=== PATIENT | male | born 1955 | race Caucasian/White ===

== ENCOUNTER 2017-09-27 13:58 | Outpatient (CLI) | payer BC ==
[2017-09-27 15:06] LABS: Hemoglobin 16.2 g/dL (14.0-18.0); Mean Corpuscular HGB CONC 36.1 g/dL (32.0-36.0); Mean Corpuscular Hemoglobin 33.1 pg (27.0-31.0); Mean Corpuscular Volume 91.9 fL (78.0-98.0); Platelet Count 191 thou/uL (130-400); RBC Distribution Width 11.4 % (11.5-14.5); White Blood Cell (WBC) Count 5.9 thou/uL (4.8-10.8)
[2017-09-27 15:39] LABS: Anion Gap 14 mmol/L (10-20); BUN (Urea Nitrogen) 14 mg/dL (8.4-25.7); Calc. Creatinine Clearance 0 mL/min (70-130); Calcium 10.1 mg/dL (7.8-10.44); Carbon Dioxide 24 mmol/L (23-31); Chloride 104 mmol/L (98-107); Estimated GFR-MDRD 83; Glucose 155 mg/dL (80-115); Potassium 4.1 mmol/L (3.5-5.1); Sodium 138 mmol/L (136-145)
== END 2017-09-27 13:59 | disposition home or self-care (01) ==
LOC: LABBT 13:58
PROVIDERS: ATTEND Neurological Surgery
DX: Z01.818 Encounter for other preprocedural examination (principal); M47.12 Other spondylosis with myelopathy, cervical region
CPT/HCPCS: 80048; 85027; 93005; 93010

== ENCOUNTER 2017-09-27 14:30 | Inpatient (IN) | payer BC ==
[2017-10-03] MEDS ORDERED: CEFAZOLIN/Water 2 GM/20 ML SYRINGE ONE (11:04)
[2017-10-03] MEDS ORDERED: Dexamethasone 20 MG/5 ML VIAL ONE (11:08)
[2017-10-03] MEDS ORDERED: ePHEDrine/0.9% NaCl/PF SYRINGE 50 mg/10 ml ONE (11:08)
[2017-10-03] MEDS ORDERED: PROPOFOL 200 MG/20 ML VIAL ONE (11:08)
[2017-10-03] MEDS ORDERED: Glycopyrrolate 0.2 MG/ML 5 ML SYRINGE ONE (11:08)
[2017-10-03] MEDS ORDERED: Ondansetron HCl/PF 4 MG/2 ML Vial ONE (11:08)
[2017-10-03] MEDS ORDERED: PHENYLEPHRINE-NS 100 MCG/ML 10 ML SYRINGE ONE (11:08)
[2017-10-03] MEDS ORDERED: Lidocaine 1% PF 5 ML VIAL ONE (11:08)
[2017-10-03] MEDS ORDERED: Sodium Chloride 0.9% 10 ML ONE (12:24)
[2017-10-03] MEDS ORDERED: Bacitracin Zinc Ointment 30 gm TUBE ONE ×2 (12:24→12:25)
[2017-10-03] MEDS ORDERED: Fentanyl 100 MCG/2 ML VIAL ONE ×4 (12:39→16:17)
[2017-10-03] MEDS ORDERED: Midazolam HCl 2 mg/2 ml Vial ONE ×2 (12:39→13:08)
[2017-10-03] MEDS ORDERED: Fentanyl 250 MCG/5 ML VIAL ONE (13:08)
[2017-10-03] MEDS ORDERED: HYDROmorphone 2 MG/ML VIAL SLOW IVP PRN (15:41)
[2017-10-03] MEDS ORDERED: Morphine Sulfate 2 MG/ML SYRINGE SLOW IVP PRN (15:41)
[2017-10-03] MEDS ORDERED: Promethazine HCl 25 MG/ML VIAL SLOW IVP PRN (15:41)
[2017-10-03] MEDS ORDERED: Meperidine HCl/PF 25 MG/ML VIAL SLOW IVP PRN (15:41)
[2017-10-03] MEDS ORDERED: Acetaminophen 500 MG TAB PO PRN (17:19)
[2017-10-03] MEDS ORDERED: SILDENAFIL CITRATE 50 MG PO PRN (17:26)
[2017-10-03] MEDS ORDERED: Promethazine 25 MG TAB PO PRN (17:28)
[2017-10-03] MEDS ORDERED: HYDROcodone/Acetaminophen 10/325 mg Tablet PO PRN (17:28)
[2017-10-03] MEDS ORDERED: diphenhydrAMINE 25 MG CAP PO PRN (17:28)
[2017-10-03] MEDS ORDERED: Mag-Al 1200 mg/1200 mg/30 ML UDCUP PO PRN (17:28)
[2017-10-03] MEDS ORDERED: Ondansetron HCl/PF 4 MG/2 ML Vial IVP PRN (17:28)
[2017-10-03] MEDS ORDERED: Promethazine HCl 12.5 MG SUPP PR PRN (17:28)
[2017-10-03] MEDS ORDERED: tiZANidine HCl 4 MG TAB PO PRN (17:28)
[2017-10-03] MEDS ORDERED: Milk Of Magnesia 30 ML UDCUP PO PRN (17:28)
[2017-10-03] MEDS ORDERED: Promethazine HCl 25 MG/ML VIAL IM PRN (17:28)
[2017-10-03] MEDS ORDERED: diphenhydrAMINE 50 MG/ML VIAL IVP PRN (17:28)
[2017-10-03] MEDS ORDERED: Morphine 4 MG/ML Carpuject SLOW IVP PRN (17:28)
[2017-10-03 17:35] VITALS: BMI 33.3
[2017-10-03] MEDS ORDERED: Morphine 4 MG/ML VIAL SLOW IVP PRN (17:35)
[2017-10-03] MEDS: Sodium Chloride 0.9% 1,000 ML IV SCH (18:13)
[2017-10-03] MEDS: HYDROcodone/Acetaminophen 10/325 mg Tablet PO PRN (20:42)
[2017-10-03] MEDS: CEFAZOLIN/Water 2 GM/20 ML SYRINGE SLOW IVP SCH (21:19)
[2017-10-04] MEDS: HYDROcodone/Acetaminophen 10/325 mg Tablet PO PRN (00:48)
[2017-10-04] MEDS: CEFAZOLIN/Water 2 GM/20 ML SYRINGE SLOW IVP SCH (03:50)
[2017-10-04] MEDS: Sodium Chloride 0.9% 1,000 ML IV SCH (04:03)
[2017-10-04 07:52] VITALS: BP 118/80; TEMP 97.9
[2017-10-04] MEDS ORDERED: Loratadine 10 MG TAB PO SCH (09:00)
[2017-10-04] MEDS ORDERED: Fluticasone Propionate Nasal Spray 16 gm Bottle NASAL SCH (09:00)
--- NOTE | 2017-10-04 09:07 | OP ---
DATE OF PROCEDURE: 10/03/2017 SURGEON: Deejay Calvin MD OPTOMETRIC COORDINATOR: Acacia Farias PA-C PROCEDURES: Anterior cervical discectomy of C3-C4, interbody arthrodesis, intravertebral biomechanic al device with local morselized autograft and demineralized bone matrix, anterior titanium instrument ation of C3-C4, posterior approach C3-C4 laminectomy, posterolateral arthrodesis, lateral mass screw instrumentation of C3-C4 with demineralized bone matrix and local morselized autograft. DESCRIPTION OF PROCEDURE: The patient was brought to the operating room and intubated. He was posit ioned supine with the head in modest extension on a gel-filled donut. Incision was made in the right precervical area and dissecting medial to the sternocleidomastoid muscle, identified the anterior ce rvical spine, and our levels confirmed by x-ray. We debrided anterior osteophytes; placed distractio n across C3-C4; and using the operating microscope and microdissection techniques, completely decompr essed the intravertebral disks decompressing the spinal cord down the level of the dura. The bony en dplates were then decorticated for the purpose of arthrodesis and appropriately sized intravertebral biomechanical PEEK device was brought into the field, filled with demineralized bone matrix and local morselized autograft, and tapped into place securely at C3-C4. Next, an anterior plate was brought into the field and secured at C3 and C4 using two 14-mm screws at each level. The wound was then ext ensively irrigated, immaculate hemostasis was secured, and the wound was closed in anatomic layers ov er a drain. The patient was then rolled in the prone position on gel-filled chest rolls and head fixed in a neutr al position on the maciej clinical trial head. A midline cervical incision was made exposing C2 through C6 a nd our level was confirmed by x-ray. We performed complete C4 and complete C3 laminectomies complete ly decompressing the spinal cord. Lateral mass screws were then placed at right C3 and right C4. Ro d was secured between the screws, connected by nuts, which were final tightened. The wound was then extensively irrigated. Immaculate hemostasis was secured. A combination of demineralized bone matri x and local morselized autograft was laid over the posterolateral surfaces for the purpose of arthrod esis. Vancomycin powder was applied and the wound was closed in anatomic layers.
== END 2017-10-04 10:05 | disposition home or self-care (01) | DRG 455 ==
LOC: SURG A 10-03 08:41
PROVIDERS: ADMIT Neurological Surgery; ATTEND Neurological Surgery
PROC: 0RB30ZZ Excision of Cervical Vertebral Disc, Open Approach (ICD-10-PCS; principal; 2017-10-03)
PROC: 0RG10A0 Fusion of Cervical Vertebral Joint with Interbody Fusion Device, Anterior Approach, Anterior Column, Open Approach (ICD-10-PCS; 2017-10-03)
PROC: 0RG10J1 Fusion of Cervical Vertebral Joint with Synthetic Substitute, Posterior Approach, Posterior Column, Open Approach (ICD-10-PCS; 2017-10-03)
DX: M47.12 Other spondylosis with myelopathy, cervical region (principal)
CPT/HCPCS: 76001; A4216; C1713; C1768; C1776; G8978-GP-CJ; G8979-GP-CJ; G8980-GP-CJ; J1100; J2001; J2250; J2270; J2405; J2704; J3010; J3370; J3490

== ENCOUNTER 2017-10-18 14:54 | Outpatient (CLI) | payer BC ==
--- NOTE | 2017-10-18 16:15 | RAD ---
CERVICAL SPINE 4 VIEWS 10/18/17 HISTORY: Neck pain. Prior surgery. COMPARISON: 09/09/17. FINDINGS: Inferior fixation plate is now in place at the C4-5 level without perihardware lucency. Posterior op erative fixation hardware is also in place on the right. Prominent osteophytosis and alignment are u nchanged. No perihardware lucency. Metallic markers associated with interbody fusion material at the postoperative level extends anteriorly to the anterior margin of the disc space. Skin georgina are fabiola dent dorsally. IMPRESSION: Degenerative and postoperative changes of the cervical spine. POS: [facility]
== END 2017-10-18 14:55 | disposition home or self-care (01) ==
LOC: TBSIIMAG 14:54
PROVIDERS: ATTEND Physician Assistant
DX: M54.2 Cervicalgia (principal); M47.892 Other spondylosis, cervical region; Z98.890 Other specified postprocedural states
CPT/HCPCS: 72040

== ENCOUNTER 2017-12-01 12:58 | Outpatient (CLI) | payer BC ==
--- NOTE | 2017-12-01 14:40 | RAD ---
CERVICAL SPINE FOUR VIEWS 12/01/17 HISTORY: Follow up surgery. COMPARISON: 10/18/17. FINDINGS: Redemonstration of the anterior fusion plate with transvertebral body screw at C3-C4. There is associ ated disc prosthesis at C3-C4. Prosthesis position is unchanged. There are unilateral right sided pos terior element screws at C3 and C4. No perihardware lucency. Vertebral body height is maintained. No fracture. Stable osteophyte formation at C4-C5 and C5-C6. There is no prevertebral soft tissue swelling and the predental space is normal. IMPRESSION: Stable postsurgical change. POS: [facility]
== END 2017-12-01 12:59 | disposition home or self-care (01) ==
LOC: TBSIIMAG 12:58
PROVIDERS: ATTEND Neurological Surgery
DX: M48.02 Spinal stenosis, cervical region (principal); Z98.890 Other specified postprocedural states
CPT/HCPCS: 72040